=== PATIENT | female | born 1995 | race Caucasian/White ===

== ENCOUNTER 2021-01-20 06:46 | Inpatient (IN) ==
[2021-01-20] MEDS ORDERED: Ringers Solution, Lactated 1,000 ML IVC ONE (08:43)
[2021-01-20] MEDS ORDERED: Famotidine 20 MG/2 ML VIAL IVP ONE (08:43)
[2021-01-20] MEDS ORDERED: Oxytocin 20 units/ LR 1000 mL 20 UNIT/1,000 ML BAG IVC ONE (08:43)
[2021-01-20] MEDS ORDERED: CeFAZolin 2,000 MG/120 ML BAG IVPB ONE (08:43)
[2021-01-20] MEDS ORDERED: Metoclopramide 10 MG/2 ML VIAL IVP ONE (08:43)
[2021-01-20] MEDS ORDERED: Ringers Solution, Lactated 1,000 ML IVC SCH (08:45)
[2021-01-20] MEDS ORDERED: Ringers Solution, Lactated 1,000 ML ONE (08:49)
[2021-01-20 09:03] LABS: Basophils % 0.4 %; Eosinophils # 0.1 K/mcL (0.0-0.6); Eosinophils % 0.7 %; Hemoglobin 11.8 g/dL (11.5-15.4); Immature Granulocytes % 1.3 % (0-4); Lymphocytes # 2.8 K/mcL (0.6-4.6); Mean Corpuscular HGB Conc 33.7 g/dL (31.6-35.5); Mean Corpuscular Volume 91.9 fL (83.0-100.0); Mean Platelet Volume 9.2 fL (9.4-12.4); Monocytes % 8.7 %; Neutrophils # 7.1 K/mcL (1.6-8.9); Platelet Count 175 K/mcL (140-400); Red Blood Count 3.81 M/mcL (3.82-4.97); Red Cell Distribution Width 12.9 % (11.5-14.5); Segmented Neutrophils % 63.9 %; White Blood Count 11.1 K/mcL (4.3-11.1)
[2021-01-20 09:41] LABS: Amphetamine Screen,Urine Negative ng/mL (Cutoff=1000); Barbiturate Screen,Urine Negative ng/mL (Cutoff=200); Benzodiazepines Screen,Urine Negative ng/mL (Cutoff=200); Cannabinoid Screen,Urine Negative ng/mL (Cutoff = 50); Cocaine Screen,Urine Negative ng/mL (Cutoff= 300); Opiate Screen,Urine Negative ng/mL (Cutoff=300); Phencyclidine Screen,Urine Negative ng/mL (Cutoff=25)
[2021-01-20 09:42] LABS: Influenza A PCR Negative (Negative); Influenza B PCR Negative (Negative); Resp. Syncytial Virus PCR Negative (Negative)
[2021-01-20 09:56] LABS: SARS-CoV-2 by PCR (In House) Negative (Negative)
[2021-01-20] MEDS ORDERED: Acetaminophen 325 MG TABLET PO ONE (13:30)
[2021-01-20] MEDS ORDERED: Rho Immune Globulin 1,500 UNIT SYRINGE IM ONE ×2 (14:54→15:45)
== END 2021-01-20 17:40 | disposition home or self-care (01) | DRG 833 ==
LOC: 1NENULAB 06:46
PROVIDERS: ADMIT Obstetrics & Gynecology; ATTEND Obstetrics & Gynecology

== ENCOUNTER 2021-02-06 09:46 | Inpatient (IN) ==
[~2021-02-06 09:46] MED LIST: *HR* Nalbuphine 10 MG/ML AMPUL IV PRN; Azithromycin 500 MG in 0.9 % Sodium Chloride 250 ML IVPB PRN; Famotidine 20 MG/2 ML VIAL IVP PRN; Lidocaine 1% 20 ML MDV INFILT PRN; Metoclopramide 10 MG/2 ML VIAL IVP PRN; Ondansetron 4 MG/2 ML VIAL IVP PRN
[2021-02-06] MEDS ORDERED: Ringers Solution, Lactated 1,000 ML IVC SCH (10:00)
[2021-02-06 10:17] LABS: Basophils % 0.1 %; Eosinophils # 0.1 K/mcL (0.0-0.6); Eosinophils % 0.4 %; Hematocrit 36.5 % (35.3-44.9); Hemoglobin 12.4 g/dL (11.5-15.4); Immature Granulocytes % 0.9 % (0-4); Lymphocytes # 2.2 K/mcL (0.6-4.6); Lymphocytes % 14.8 %; Mean Corpuscular Hemoglobin 30.8 pg (28.0-33.3); Mean Corpuscular Volume 90.8 fL (83.0-100.0); Mean Platelet Volume 9.2 fL (9.4-12.4); Monocytes % 6.9 %; Neutrophils # 11.4 K/mcL (1.6-8.9); Platelet Count 188 K/mcL (140-400); Red Blood Count 4.02 M/mcL (3.82-4.97); Red Cell Distribution Width 12.4 % (11.5-14.5); Segmented Neutrophils % 76.9 %; White Blood Count 14.8 K/mcL (4.3-11.1)
[2021-02-06 10:26] LABS: Amphetamine Screen,Urine Negative ng/mL (Cutoff=1000); Barbiturate Screen,Urine Negative ng/mL (Cutoff=200); Benzodiazepines Screen,Urine Negative ng/mL (Cutoff=200); Cannabinoid Screen,Urine Negative ng/mL (Cutoff = 50); Cocaine Screen,Urine Negative ng/mL (Cutoff= 300); Opiate Screen,Urine Negative ng/mL (Cutoff=300); Phencyclidine Screen,Urine Negative ng/mL (Cutoff=25)
[2021-02-06] MEDS ORDERED: EPHEDrine 50 MG/ML VIAL IVP PRN (10:45)
[2021-02-06] MEDS ORDERED: Epidural Premix (fent/bupiv) 110 ML EP SCH (10:45)
[2021-02-06 10:57] LABS: Influenza A PCR Negative (Negative); Influenza B PCR Negative (Negative); Resp. Syncytial Virus PCR Negative (Negative)
[2021-02-06 11:12] LABS: SARS-CoV-2 by PCR (In House) Negative (Negative)
[2021-02-06] MEDS ORDERED: Oxytocin 20 units/ LR 1000 mL 20 UNIT/1,000 ML BAG IVC ONE (19:08)
[2021-02-06] MEDS ORDERED: Rho Immune Globulin 1,500 UNIT SYRINGE IM PRN (22:43)
[2021-02-06] MEDS ORDERED: Benzocaine/Menthol 56 GM AEROSOL SPRAY TP PRN (22:43)
[2021-02-06] MEDS ORDERED: Oxytocin 20 units/ LR 1000 mL 20 UNIT/1,000 ML BAG IVC SCH (22:43)
[2021-02-06] MEDS ORDERED: Lanolin 7 G OINT...G. TP PRN (22:43)
[2021-02-06] MEDS ORDERED: Ondansetron ODT 4 MG TAB.RAPDIS SL PRN (22:43)
[2021-02-06] MEDS: Acetaminophen 325 MG TABLET PO SCH (23:24)
[2021-02-07 06:33] LABS: Basophils % 0.1 %; Eosinophils % 0.1 %; Hematocrit 29.7 % (35.3-44.9); Immature Granulocytes % 0.7 % (0-4); Lymphocytes # 2.4 K/mcL (0.6-4.6); Lymphocytes % 13.4 %; Mean Corpuscular HGB Conc 34.7 g/dL (31.6-35.5); Mean Corpuscular Hemoglobin 31.3 pg (28.0-33.3); Mean Corpuscular Volume 90.3 fL (83.0-100.0); Mean Platelet Volume 9.4 fL (9.4-12.4); Monocytes # 1.8 K/mcL (0.0-1.3); Monocytes % 9.8 %; Neutrophils # 13.6 K/mcL (1.6-8.9); Platelet Count 175 K/mcL (140-400); Red Blood Count 3.29 M/mcL (3.82-4.97); Red Cell Distribution Width 12.6 % (11.5-14.5); Segmented Neutrophils % 75.9 %; White Blood Count 17.9 K/mcL (4.3-11.1)
[2021-02-07 06:34] LABS: Hemoglobin 10.3 g/dL (11.5-15.4)
[2021-02-07] MEDS ORDERED: Prenatal Vit/FA 1 EACH TABLET PO SCH (09:00)
[2021-02-07] MEDS: Ibuprofen 600 MG TABLET PO SCH ×2 (09:02→19:56)
[2021-02-07] MEDS: Acetaminophen 325 MG TABLET PO SCH ×2 (09:03→19:55)
[2021-02-07 21:53] VITALS: O2SAT 99
[2021-02-08] MEDS: Ibuprofen 600 MG TABLET PO SCH (05:27)
[2021-02-08] MEDS: Acetaminophen 325 MG TABLET PO SCH (05:28)
[2021-02-08 07:05] VITALS: BP 95/51; PULSE 69; TEMP 97.7
== END 2021-02-08 13:58 | disposition home or self-care (01) | DRG 807 ==
LOC: 1NENULAB → 1NENUOBS 02-07 00:54
PROVIDERS: ADMIT Advanced Practice Midwife; ATTEND Advanced Practice Midwife